=== PATIENT | female | born 1980 | race Caucasian/White ===

== ENCOUNTER 2017-04-16 15:44 | Inpatient (IN) | payer OTHER, BC, MEDICARE ==
[~2017-04-16] VITALS: Ht 152.4 cm; Wt 70.3 kg
[2017-04-16] VITALS (17 sets, daily range): O2SAT 100
[~2017-04-16 15:44] MED LIST: AMBIEN 10MG10 MG PO; BISACODYL LAXATI5 MG PO; CETIRIZINE PO; HUMALOG100 U/ML SC; LANTUS100 U/ML SQ; LEVOTHYROXINE PO; MOTRIN 600600 MG/TAB PO; MS CONTIN 330 MG/TAB PO; PERCOCET 325 MG1 TAB PO; STOOL SOFTENER100 M2 PO; SYNTHROID0.137 MG PO; XANAX 0.5MG0.5 MG PO
[2017-04-16] MEDS ORDERED: BUTRANS5 MCG/HR TD (17:10)
[2017-04-16] MEDS ORDERED: DILAUDID 4MG TAB4 MG PO (17:11)
[2017-04-16] MEDS ORDERED: NOVOLOG FLEX100 U/ML SQ (17:12)
[2017-04-16] MEDS ORDERED: VALIUM 5MG T5 MG/TAB PO (17:34)
[2017-04-16] MEDS ORDERED: LEVEMIR100 U/ML SQ (17:42)
[2017-04-16 22:17] LABS: BASO % 0.5 % (0.0-2.0); EOS % 0.2 % (0-4.0); GRAN # 6.4 (1.4-6.5); GRAN % 72.6 % (42.2-75.2); HEMATOCRIT 33.9 % (37.0-47.0); HEMOGLOBIN 11.4 g/dl (12.5-16.0); MEAN CELL VOLUME 97 fl (80.0-100.0); MEAN CORPUSCULAR HEMOGLOBIN 33 pg (27.0-31.0); MEAN CORPUSCULAR HGB CONC 34 g/dl (33.0-37.0); MEAN PLATELET VOLUME 11.9 fl (7.4-10.4); MONO # 0.3 (0.1-0.6); MONO % 3.4 % (1.7-9.3); PLATELET COUNT 193 K/mm3 (130-400); RED BLOOD COUNT 3.48 M/mm3 (4.10-5.30); REDCELL DISTRIBUTION WIDTH-CV 11.8 % (11.5-14.5); WHITE BLOOD COUNT 8.8 K/mm3 (4.8-10.8)
[2017-04-16 22:18] LABS: ARTERIAL BLD GAS O2 SATURATION 98.9 % (92-100); ARTERIAL BLD GAS TCO2 CT 20.2; ARTERIAL BLOOD GAS BASE EXCESS -7.8 (-2-2); ARTERIAL BLOOD GAS HCO3 18.9 meq/L (22-26); ARTERIAL BLOOD GAS pH 7.26 (7.35-7.45); OXYHEMOGLOBIN 97.8 %
[2017-04-16 22:19] LABS: ARTERIAL BLOOD GAS PO2 289.9 mmHg (80-100)
[2017-04-16 22:36] LABS: CALCIUM 7.4 mg/dL (8.4-10.2); CREATININE, serum 0.67 mg/dL (0.52-1.25)
[2017-04-16 22:38] LABS: POTASSIUM 6.1 mmol/L (3.4-5.0)
[2017-04-17] VITALS (36 sets, daily range): BP systolic 99–187; BP diastolic 47–82; PULSE 75–94; TEMP 37; O2SAT 100
[2017-04-17 02:32] LABS: CALCIUM 8.1 mg/dL (8.4-10.2); CREATININE, serum 0.66 mg/dL (0.52-1.25)
[2017-04-18 00:15] VITALS: BP 152/63; PULSE 89; TEMP 98.5
[2017-04-18 00:39] VITALS: BP 157/76; PULSE 87
[2017-04-18 06:28] VITALS: BP 161/64; PULSE 89; TEMP 99.1
[2017-04-18 10:15] VITALS: BP 164/80; PULSE 91; TEMP 98
[2017-04-18] MEDS ORDERED: DILAUDID 4MG TAB4 MG PO (13:35)
== END 2017-04-18 14:30 | disposition home health service (06) | DRG 511 ==
LOC: COL.ER 15:44 → SURG 18:25 → ICU 23:39 → SURG 04-17 00:33
PROVIDERS: Internal Medicine; Orthopaedic Surgery
PROC: 0PSH04Z Reposition Right Radius with Internal Fixation Device, Open Approach (ICD-10-PCS; 2017-04-16)
PROC: 0PSJ04Z Reposition Left Radius with Internal Fixation Device, Open Approach (ICD-10-PCS; principal; 2017-04-16 19:00)
DX: S52.572A Other intraarticular fracture of lower end of left radius, initial encounter for closed fracture (principal); S52.571A Other intraarticular fracture of lower end of right radius, initial encounter for closed fracture; S52.611A Displaced fracture of right ulna styloid process, initial encounter for closed fracture; E87.2 Acidosis; V43.52XA Car driver injured in collision with other type car in traffic accident, initial encounter; E10.65 Type 1 diabetes mellitus with hyperglycemia; Z79.4 Long term (current) use of insulin; M79.7 Fibromyalgia; R53.82 Chronic fatigue, unspecified; Z87.891 Personal history of nicotine dependence; E87.5 Hyperkalemia
CPT/HCPCS: 99223; 99232-AI; A4315; C1713; G8978-GP; G8979-GP; G8987-GO; G8988-GO; J0690; J1170; J1650; J1815; J2250; J2270; J2405; J2704; J2765; J2795; J3010; J7030